=== PATIENT | male | born 1950 | race Caucasian/White ===

== ENCOUNTER 2018-12-29 11:39 | Emergency (ER) | payer OTHER ==
[~2018-12-29] VITALS: Ht 172.7 cm; Wt 76.3 kg
[~2018-12-29 11:39] MED LIST: DAPT500V6 IV; DOXY100T PO; ERTA1VIA IV; GABA300C10 PO; HYDR-3237 PO; IBUP-1221 PO; IBUP-1223 PO; METH750T87 PO; OXYC-432 PO; PAIN MEDICATION PO
[2018-12-29 11:41] VITALS: BP 107/71
[2018-12-29] MEDS ORDERED: KETOROLAC 30 MG/1 ML IM ONE (12:00)
[2018-12-29] MEDS ORDERED: METHOCARBAMOL 750 MG TABLET PO ONE (12:00)
[2018-12-29] MEDS ORDERED: METHOCARBAMOL 750 MG TABLET ONE (12:09)
[2018-12-29] MEDS ORDERED: KETOROLAC 60 MG/2 ML ONE (12:10)
== END 2018-12-29 13:45 | disposition home or self-care (01) ==
LOC: ED 13:39
DX: S39.012A Strain of muscle, fascia and tendon of lower back, initial encounter (principal); W18.39XA Other fall on same level, initial encounter; Y93.89 Activity, other specified; Y92.89 Other specified places as the place of occurrence of the external cause; Y99.8 Other external cause status
CPT/HCPCS: 72110; 96372; 99283; J1885